=== PATIENT | female | born 1960 | race Caucasian/White ===

== ENCOUNTER 2018-07-29 16:57 | Emergency (ER) | payer OTHER, SELFPAY ==
[2018-07-29 17:07] VITALS: BP 134/85; PULSE 88; RESP 14; TEMP 36.9; O2SAT 97
--- NOTE | 2018-07-29 17:25 | DI.RAD.S_ITS ---
PROCEDURE: XR CHEST 2V INDICATIONS: chest pressure, fatigue TECHNIQUE: 2 views of the chest were acquired. COMPARISON: None. FINDINGS: Surgical changes and devices: None. Lungs and pleura: No pleural effusions or pneumothorax. Lungs are clear. Mediastinum: Mediastinal contours are normal. Heart size is normal. Bones and chest wall: No suspicious bony abnormalities. Soft tissues appear unremarkable. IMPRESSION: Negative chest plain films. Dictated by: Chilango Howell M.D. on 07/29/2018 at 16:47 Approved by: Chilango Howell M.D. on 07/29/2018 at 16:48
[2018-07-29 17:45] LABS: Add Manual Diff / Slide Review NO; Eosinophils Percent Auto 3.1 % (2-4); Hematocrit 38.5 % (36-46); Hemoglobin 12.9 g/dL (12.0-16.0); Lymphocytes Percent Auto 21.4 % (25-40); Mean Corpuscular HGB Conc 33.5 % (30-36); Mean Corpuscular Hemoglobin 30.3 PG (26-34); Mean Corpuscular Volume 90.7 fL (80-100); Monocytes Percent Auto 8.7 % (3-14); Neutrophils Absolute Auto 3400 /uL (1500-7000); Neutrophils Percent Auto 65.8 % (50-75); Platelet Count 257 X10^3/uL (150-400); Red Blood Cell Count 4.24 X10^6/uL (4.0-5.2); Red Cell Distribution Width 12.9 % (11.6-14.8); White Blood Cell Count 5.1 X10^3/uL (4.5-11.0)
[2018-07-29 17:54] LABS: Alanine Aminotransferase 91 IU/L (9-52); Albumin 4.7 g/dL (3.5-5.0); Albumin Globulin Ratio 1.4 (1.0-2.8); Alkaline Phosphatase 111 U/L (38-126); Aspartate Aminotransferase 41 IU/L (14-36); BUN Creatinine Ratio 21.4 (6-22); Bilirubin Total 0.9 mg/dL (0.2-1.3); Blood Urea Nitrogen 15 mg/dL (7-17); Calcium 9.2 mg/dL (8.4-10.2); Carbon Dioxide 28 mmol/L (22-32); Chloride 98 mmol/L (98-107); Estimated Glomerular Filt Rate > 60.0 mL/min (>60); Globulin 3.3 g/dL (1.7-4.1); Glucose 97 mg/dL (80-110); HEMOLYSIS < 15 (0-50); Potassium 3.8 mmol/L (3.4-5.1); Sodium 137 mmol/L (137-145)
[2018-07-29 18:08] LABS: Troponin I < 0.012 ng/mL (0.01-0.034)
[2018-07-29 19:03] VITALS: BP 122/81; PULSE 79; RESP 13; O2SAT 99
[2018-07-29 20:00] VITALS: BP 127/84; PULSE 89; RESP 15; O2SAT 97
--- NOTE | 2018-07-29 20:04 | ED.CHESTPAIN ---
HPI - Chest Pain General Chief Complaint: Chest Pain Stated Complaint: TIGHTNESS OF CHEST Time Seen by Provider: 07/29/18 19:45 Source: patient Mode of arrival: ambulatory Limitations: no limitations History of Present Illness HPI narrative: Patient is a 58-year-old female here for evaluation of bilateral chest tightness. Patient states that over the past week she has had sinus congestion. She states she woke up this morning with the chest congestion. She states that it has been consistent all day long. Has not changed. Does not get better worse with palpation or movement or breathing. Has been coughing somewhat. Has not tried any decongestants for any of her upper respiratory symptoms. No prior history of cardiac issues. Related Data Previous Rx's Medication Instructions Recorded azithromycin See Label Instructions .ROUTE 07/29/18 .COMPLEX #6 tab Allergies Allergy/AdvReac Type Severity Reaction Status Date / Time No Known Drug Allergies Allergy Unverified 07/29/18 16:25 Review of Systems Constitutional Denies fever(s) and Denies headache(s) ENT Ears, Nose, Mouth, and Throat: Denies headache(s) Cardiovascular Reports chest pain, Denies edema, Denies dyspnea and Denies orthopnea Respiratory Reports chest congestion, Reports cough, Denies pain on inspiration and Denies dyspnea Gastrointestinal Gastrointestinal: Denies abdominal pain Genitourinary Denies dysuria Musculoskeletal Denies myalgias and Denies arthralgias Integumentary/Breasts Denies rash Neurologic Denies headache(s) Hematologic/Lymphatic Comments: Not on anticoagulation PFSH Medical History Healthy adult (Acute) Surgical History No pertinent past surgical history (Acute) Social History Smoking Status: Never smoker Exam Initial Vital Signs Initial Vital Signs: Vital Signs Temperature 98.4 F 07/29/18 17:07 Pulse Rate 88 07/29/18 17:07 Respiratory Rate 14 07/29/18 17:07 Blood Pressure 134/85 07/29/18 17:07 Pulse Oximetry 97 07/29/18 17:07 Const General: cooperative, healthy appearing, comfortable, well developed, well groomed and No acute distress Orientation: alert, awake and oriented x3 HENMT Head: normal to inspection and normocephalic Resp Effort & Inspection: normal respiratory effort Auscultation: clear to auscultation bilaterally Cardio Rate: regular rate Rhythm: regular rhythm Pulses: radial pulses present GI Inspection: non-distended Palpation: soft and No tender Skin Lesions: no lesions Rashes: no rashes Neuro General: alert, awake and oriented x3 Extrem General: normal to inspection and capillary refill normal Psych Appearance: grossly normal and well kempt Scores HEART Score Heart Score history: Slightly Suspicious Heart Score EKG: Normal Heart Score Age: 45-64 years old Heart Score risk factors: No known risk factors Heart Score troponin: < or = to normal limit Heart Score Total: 1 Course Orders Ordered: ED Orders 07/29/18 17:10 EKG-12 Lead Stat 07/29/18 17:25 Chest [XR chest 2V] Stat 07/29/18 17:35 CBC [Complete Blood Count AUTO DIFF] Stat CMP [Comprehensive Metabolic Panel] Stat Troponin I Stat Vital Signs - 8 hr 07/29/18 17:07 07/29/18 19:03 Temperature 98.4 F Pulse Rate 88 79 Respiratory Rate 14 13 Blood Pressure 134/85 Blood Pressure [Left Arm] 122/81 Pulse Oximetry 97 99 MDM - Chest Pain Lab Data Attestation: I reviewed the patient's lab results. Result diagrams: 07/29/18 17:35 07/29/18 17:35 Lab Results 07/29/18 07/29/18 Range/Units 17:35 17:35 WBC 5.1 (4.5-11.0) X10^3/uL RBC 4.24 (4.0-5.2) X10^6/uL Hgb 12.9 (12.0-16.0) g/dL Hct 38.5 (36-46) % MCV 90.7 (80-100) fL MCH 30.3 (26-34) PG MCHC 33.5 (30-36) % RDW 12.9 (11.6-14.8) % Plt Count 257 (150-400) X10^3/uL Neut % (Auto) 65.8 (50-75) % Lymph % (Auto) 21.4 L (25-40) % [place] % (Auto) 8.7 (3-14) % Eos % (Auto) 3.1 (2-4) % Baso % (Auto) 1.0 (0-2) % Neut # (Auto) 3400 (5318-7390) /uL Sodium 137 (137-145) mmol/L Potassium 3.8 (3.4-5.1) mmol/L Chloride 98 (98-107) mmol/L Carbon Dioxide 28 (22-32) mmol/L BUN 15 (7-17) mg/dL Creatinine 0.70 (0.52-1.04) mg/dL Estimated GFR > 60.0 (>60) mL/min BUN/Creatinine Ratio 21.4 (6-22) Glucose 97 (80-110) mg/dL Calcium 9.2 (8.4-10.2) mg/dL Total Bilirubin 0.9 (0.2-1.3) mg/dL AST 41 H (14-36) IU/L ALT 91 H (9-52) IU/L Alkaline Phosphatase 111 (38-126) U/L Troponin I < 0.012 (0.01-0.034) ng/mL Total Protein 8.0 (6.3-8.2) g/dL Albumin 4.7 (3.5-5.0) g/dL Globulin 3.3 (1.7-4.1) g/dL Albumin/Globulin Ratio 1.4 (1.0-2.8) Imaging Data Chest x-ray: Radiologist's impression: PROCEDURE: XR CHEST 2V INDICATIONS: chest pressure, fatigue TECHNIQUE: 2 views of the chest were acquired. COMPARISON: None. FINDINGS: Surgical changes and devices: None. Lungs and pleura: No pleural effusions or pneumothorax. Lungs are clear. Mediastinum: Mediastinal contours are normal. Heart size is normal. Bones and chest wall: No suspicious bony abnormalities. Soft tissues appear unremarkable. IMPRESSION: Negative chest plain films. Dictated by: Chilango Howell M.D. on 07/29/2018 at 16:47 Approved by: Chilango Howell M.D. on 07/29/2018 at 16:48 ECG Data Attestation: I personally reviewed and interpreted this ECG as follows: Prior ECG tracings: available for review Interpretation: EKG dated 29 July 2018 time 1715 hr Sinus rhythm Ventricular rate 82 LVH Normal QRS Normal QTC No ST T wave changes Comparison EKG dated 29 July 2018 time 1639 hr Unchanged from today's EKG MDM Narrative Medical decision making narrative: Patient with consistent chest symptoms since she woke up this morning which was greater than 6 hr after arrival here in the emergency department. Her EKG shows no ischemic changes. Her troponin was negative. Chest x-ray is unremarkable. Patient is a heart score of 1. She does describe some chest congestion. We did discuss the use of decongestants. Informed her that she needed to make contact the primary care doctor to discuss further workup. She was given return precautions. Will hold for further workup now. She expressed understanding and agreement with plan. Discharge Plan Departure Patient Disposition: Home Clinical Impression: Atypical chest pain, Sinus congestion Discharge Date/Time: 07/29/18 20:31 Interventions: ED Discharge Assessment Last Done: 07/29/18 20:31 Instructions: DI for Atypical Chest Pain Activity Restrictions/Additional Instructions: Recommend that you take an [id number]-[id number] Claritin or Richa or Zyrtec like we discussed. I also recommend you take Flonase or Nasonex likely discussed for your symptoms. If her symptoms do not improve or worsen over the next couple days you can fill the prescription for antibiotics and take them as directed. Return to the emergency department for any new or worsening symptoms Prescriptions: New azithromycin 250 mg tablet See Label Instructions .ROUTE .COMPLEX Qty: 6 RF: 0
== END 2018-07-29 20:31 | disposition home or self-care (01) ==
PROVIDERS: Emergency Medicine; Emergency Provider Emergency Medicine
DX: R07.89 Other chest pain (principal); R09.81 Nasal congestion
CPT/HCPCS: 71046; 80053; 84484; 85025; 93005; 99282; 99285

== ENCOUNTER → 2018-08-14 08:47 | Outpatient (CLI) | payer OTHER, SELFPAY ==
--- NOTE | 2018-08-18 16:00 | PM.PFT.1 ---
Pulmonary Function Test Referral & Results Date Patient Seen: 08/14/18 Requesting provider: Cyndy Hardy Indication: R05 Results: The spirometry demonstrates an FVC of 3.39 L which is 99% of predicted. The FEV1 was measured at 2.94 L which is 111% of predicted. The FEV1/FVC ratio was 87 which is 111% of predicted. Following the administration of bronchodilator there was no appreciable change in above normal numbers. Lung volumes show an SVC of 3.26 L which is 103% of predicted. The diffusing capacity was measured at 25.00 which is 97% of predicted. The maximum voluntary ventilation was normal Interpretation: This study demonstrates normal pulmonary function
== END ==
PROVIDERS: PCP Family Medicine; Visit Provider Family Medicine
DX: R05 Cough (principal)
CPT/HCPCS: 94060; 94726; 94729

== ENCOUNTER → 2018-10-02 16:08 | Outpatient (REF) | payer OTHER, SELFPAY | LOC: LAB 16:08 | PROVIDERS: PCP Family Medicine; Visit Provider Family Medicine | DX: L03.90 Cellulitis, unspecified (principal) | CPT/HCPCS: 87070 ==

== ENCOUNTER → 2018-10-08 08:30 | Outpatient (CLI) | payer OTHER, SELFPAY ==
--- NOTE | 2018-10-08 | DI.MG.S_ITS ---
BILATERAL DIGITAL SCREENING MAMMOGRAM 3D/2D WITH CAD: 10/08/2018 CLINICAL: Routine screening. Family history of breast cancer. Comparison is made to exam dated: 05/13/2015 mammogram - [facility]. The tissue of both breasts is heterogeneously dense. This may lower the sensitivity of mammography. Current study was also evaluated with a Computer Aided Detection (CAD) system. No significant masses, calcifications, or other findings are seen in either breast. There has been no significant interval change. IMPRESSION: NEGATIVE There is no mammographic evidence of malignancy. A 1 year screening mammogram is recommended. This exam was interpreted at Station ID: [id number]. NOTE: For mammograms, a report in lay terms will be sent to the patient. Approximately 15% of breast malignancies will not be visualized mammographically. In the management of a palpable breast mass, a negative mammogram must not discourage biopsy of a clinically suspicious lesion. Electronically Signed By: Harjit morrissey/philip:10/08/2018 18:00:07 letter sent: Normal Exam ACR BI-RADS Category 1: Negative 3341F
== END ==
PROVIDERS: PCP Family Medicine; Visit Provider Family Medicine
DX: Z12.31 Encounter for screening mammogram for malignant neoplasm of breast (principal); Z80.3 Family history of malignant neoplasm of breast
CPT/HCPCS: 77063; 77067

== ENCOUNTER → 2020-04-12 13:42 | Outpatient (CLI) | payer OTHER, SELFPAY ==
--- NOTE | 2020-04-12 13:45 | DI.RAD.S_ITS ---
PROCEDURE: XR SHOULDER LT MIN 2V INDICATIONS: BILATERAL SHOULDER PAIN TECHNIQUE: 3 views of the shoulder were acquired. COMPARISON: [facility], CR, XR SHOULDER RT MIN 2V, 04/12/2020, 12:45. FINDINGS: Bones: No fractures or dislocations. No suspicious bony lesions. Visualized ribs appear intact. Mild joint narrowing with periarticular osteophyte formation. Soft tissues: No suspicious soft tissue calcifications. IMPRESSION: Mild acromioclavicular and glenohumeral joint degeneration. Dictated by: Luis Araujo [facility] Interpreted: Jorden Benoit MD on 04/12/2020 at 16:23 Approved by: Jorden Benoit M.D. on 04/12/2020 at 17:01
--- NOTE | 2020-04-12 13:45 | DI.RAD.S_ITS ---
PROCEDURE: XR SHOULDER RT MIN 2V INDICATIONS: BILATERAL SHOULDER PAIN TECHNIQUE: 2 views of the shoulder were acquired. COMPARISON: None. FINDINGS: Bones: No fractures or dislocations. No suspicious bony lesions. Visualized ribs appear intact. Mild acromioclavicular degenerative narrowing. Soft tissues: No suspicious soft tissue calcifications. IMPRESSION: Mild acromioclavicular degenerative narrowing. Dictated by: Tayler Samayoa M.D. on 04/12/2020 at 16:24 Approved by: Tayler Samayoa M.D. on 04/12/2020 at 16:24
--- NOTE | 2020-04-12 13:45 | DI.RAD.S_ITS ---
PROCEDURE: XR LUMBAR SPINE 2-3V INDICATIONS: LOW BACK PAIN TECHNIQUE: 3 views of the lumbar spine were acquired. COMPARISON: None. FINDINGS: Bones: 5 [id number] vertebrae are present. There is normal bony alignment. No vertebral body compression fractures. No suspicious bony lesions. Multilevel disc degeneration, severe at the L4-L5 and L5-S1 levels where there is moderate facet joint arthropathy. Soft tissues: Overlying bowel gas pattern is normal. No suspicious soft tissue calcifications. IMPRESSION: Multilevel spondylosis. Dictated by: Luis Araujo [facility] Interpreted: Jorden Benoit MD on 04/12/2020 at 16:50 Approved by: Jorden Benoit M.D. on 04/12/2020 at 17:02
--- NOTE | 2020-04-12 13:45 | DI.RAD.S_ITS ---
PROCEDURE: XR HIP W PEL IF DONE LT MIN 4V INDICATIONS: BILATERAL HIP PAIN TECHNIQUE: AP pelvis with lateral view(s) of the left and right hip(s). COMPARISON: None. FINDINGS: Bones: No fractures or dislocations. Pelvic ring appears intact. No suspicious bony lesions. Mild joint narrowing with periarticular osteophyte formation. Degenerative disc and facet disease involves the inferior lumbar spine. Soft tissues: The visualized bowel gas pattern is normal. No suspicious soft tissue calcifications. IMPRESSION: Mild symmetric hip joint degeneration. Dictated by: Luis Araujo [facility] Interpreted: Jorden Benoit MD on 04/12/2020 at 16:24 Approved by: Jorden Benoit M.D. on 04/12/2020 at 17:01
== END ==
PROVIDERS: PCP Family Medicine; Referring Provider Family Medicine; Visit Provider Family Medicine
DX: M54.5 Low back pain (principal); M47.816 Spondylosis without myelopathy or radiculopathy, lumbar region; M47.817 Spondylosis without myelopathy or radiculopathy, lumbosacral region; M25.552 Pain in left hip; M25.551 Pain in right hip; M16.0 Bilateral primary osteoarthritis of hip; M25.512 Pain in left shoulder; M25.511 Pain in right shoulder; M19.012 Primary osteoarthritis, left shoulder
CPT/HCPCS: 72100; 73030; 73522

== ENCOUNTER → 2021-11-03 14:29 | Outpatient (CLI) | payer OTHER, SELFPAY ==
--- NOTE | 2021-11-03 | DI.MG.S_ITS ---
BILATERAL DIGITAL SCREENING MAMMOGRAM 3D/2D WITH CAD: 11/03/2021 CLINICAL: Routine screening. Family history of breast cancer. Comparison is made to exams dated: 10/08/2018 mammogram - [facility] and 05/13/2015 mammogram - [facility]. The tissue of both breasts is heterogeneously dense. This may lower the sensitivity of mammography. Current study was also evaluated with a Computer Aided Detection (CAD) system. There are benign calcifications in the left breast. No significant masses, calcifications, or other findings are seen in either breast. There has been no significant interval change. IMPRESSION: BENIGN There is no mammographic evidence of malignancy. A 1 year screening mammogram is recommended. This exam was interpreted at Station ID: [id number]. NOTE: For mammograms, a report in lay terms will be sent to the patient. Approximately 15% of breast malignancies will not be visualized mammographically. In the management of a palpable breast mass, a negative mammogram must not discourage biopsy of a clinically suspicious lesion. Electronically Signed By: Dipak Mckee acr/philip:11/03/2021 14:54:02 letter sent: Normal Exam ACR BI-RADS Category 2: Benign Finding(s) 3342F
== END ==
PROVIDERS: Family Provider Family Medicine; PCP Family Medicine; Referring Provider Family Medicine; Visit Provider Family Medicine
DX: Z12.31 Encounter for screening mammogram for malignant neoplasm of breast (principal); Z80.3 Family history of malignant neoplasm of breast
CPT/HCPCS: 77063; 77067

== ENCOUNTER → 2022-11-05 09:04 | Outpatient (CLI) | payer OTHER, SELFPAY ==
--- NOTE | 2022-11-05 | DI.MG.S_ITS ---
BILATERAL DIGITAL SCREENING MAMMOGRAM 3D/2D WITH CAD: 11/05/2022 CLINICAL: Routine screening. Family history of breast cancer. Comparison is made to exams dated: 11/03/2021 mammogram, 10/08/2018 mammogram - [facility], and 05/13/2015 mammogram - [facility]. Both breasts are heterogeneously dense, which may obscure small masses (category c / 51-75% glandular tissue). Current study was also evaluated with a Computer Aided Detection (CAD) system. There are benign calcifications in the left breast. No significant masses, calcifications, or other findings are seen in either breast. There has been no significant interval change. IMPRESSION: BENIGN There is no mammographic evidence of malignancy. A 1 year screening mammogram is recommended. Based on the Tyrer Cuzick model (a risk assessment model) the patient's lifetime risk is 18.8% and her 10 year risk is 9.0%. According to the ACR, ACS, and NCCN guidelines, an annual breast MRI exam along with mammogram is recommended if the patient's lifetime risk is 20% or greater. This exam was interpreted at Station ID: [id number]. NOTE: For mammograms, a report in lay terms will be sent to the patient. Approximately 15% of breast malignancies will not be visualized mammographically. In the management of a palpable breast mass, a negative mammogram must not discourage biopsy of a clinically suspicious lesion. Electronically Signed By: Bhaskar zamarripa/philip:11/05/2022 10:06:11 letter sent: Normal Exam ACR BI-RADS Category 2: Benign Finding(s) 3342F
== END ==
PROVIDERS: Family Provider Family Medicine; PCP Family Medicine; Referring Provider Family Medicine; Visit Provider Family Medicine
DX: Z12.31 Encounter for screening mammogram for malignant neoplasm of breast (principal); Z80.3 Family history of malignant neoplasm of breast
CPT/HCPCS: 77063; 77067

== ENCOUNTER → 2022-11-14 14:48 | Outpatient (CLI) | payer OTHER, SELFPAY ==
--- NOTE | 2022-11-14 15:00 | DI.DEXA.S_ITS ---
Bone Density Report Name: KVNG SALAS Age: 62 Sex: Female Ethnicity: White Date of : 1960 Indication: postmenopausal; screening for osteoporosis; Referring Provider: LARA BOCANEGRA Study: Bone densitometry was performed. Exam Date: November 14, 2022 Accession number: [id number] Bone Density: Region BMD T-score Z-score Classification AP Spine(L1, L3, L4) 0.874 -1.6 0.1 Osteopenia Femoral Neck (Left) 0.747 -0.9 0.6 Normal Total Hip (Left) 0.947 0.0 1.3 Normal Femoral Neck (Right) 0.858 0.1 1.6 Normal Total Hip (Right) 0.957 0.1 1.3 Normal Total Hip Mean 0.952 0.1 1.3 Normal World Health Organization criteria for BMD impression classify patients as: Normal (T-score at or above -1.0), Osteopenia (T-score between -1.0 and -2.5), or Osteoporosis (T-score at or below -2.5). 10-year Fracture Risk(1): Major Osteoporotic Fracture 7.6% Hip Fracture 0.5% Reported Risk Factors: [place] (), Neck BMD=0.747, BMI=28.7 (1) FRAX(R) Version 3.08. Fracture probability calculated for an untreated patient. Fracture probability may be lower if the patient has received treatment. Impression: The patient has low bone mass, based on the Total Spine T-score. The patient has an estimated ten-year risk of hip fracture of 0.5% and an estimated ten-year risk of major fracture of 7.6%, based on the WHO FRAX algorithm. Discussion: BONE DENSITY IS LOW AT ONE OR MORE SKELETAL SITES. This patient's lowest T-score is low at one or more skeletal sites. It meets the World Health Organization's (WHO) criteria for ?low bone mass? (T-score between -1.0 and -2.5). The patient's 10-year risk of fracture as calculated by FRAX is less than the threshold where pharmacological therapy is recommended by the National Osteoporosis Foundation (NOF). However, all treatment decisions require clinical judgment and consideration of individual patient factors, including patient preferences, comorbidities, previous drug use, risk factors not captured in the FRAX model (e.g., frailty, falls, vitamin D deficiency, increased bone turnover, interval significant decline in bone density) and possible under or overestimation of fracture risk by FRAX. The patient should follow a healthful lifestyle (good nutrition with adequate calcium and vitamin D, and appropriate weight-bearing exercise). Follow-Up: Consider repeating this study in 2 to 3 years to reassess this patient's status, or sooner if there is some new clinical indication. Reported by: DIONNE BETTS M.D. on 11/14/2022 3:09:00 PM.
== END ==
PROVIDERS: Family Provider Family Medicine; PCP Family Medicine; Referring Provider Family Medicine; Visit Provider Family Medicine
DX: Z13.820 Encounter for screening for osteoporosis (principal); Z78.0 Asymptomatic menopausal state; M85.88 Other specified disorders of bone density and structure, other site
CPT/HCPCS: 77080

== ENCOUNTER → 2023-06-07 08:18 | Outpatient (CLI) | payer MEDICARE, SELFPAY | PROVIDERS: Family Provider Family Medicine; PCP Family Medicine; Visit Provider Family Medicine | DX: Z87.898 Personal history of other specified conditions (principal) | CPT/HCPCS: 87077; 87086; 87186 ==

== ENCOUNTER → 2023-07-02 07:33 | Outpatient (CLI) | payer MEDICARE, SELFPAY ==
--- NOTE | 2023-07-02 07:34 | DI.US.S_ITS ---
PROCEDURE: US RENAL COMPLETE INDICATIONS: DYSURIA TECHNIQUE: Real-time scanning was performed of the kidneys and bladder, with image documentation. COMPARISON: None. FINDINGS: Kidneys: Kidneys are normal in size. Right kidney measures 11.8 cm long; left kidney measures 10.4 cm long. Right renal cortical thickness is 1.5 cm; left renal cortical thickness is 1.6 cm. Renal cortical echotexture is normal. No hydronephrosis or nephrolithiasis. No suspicious solid mass lesions. Bladder: Pre-void bladder volume is 223 mL. Post-void residual is 21 mL. Focal wall thickening on prevoid imaging measuring up to 7.0 millimeters. On pre-void images, bilateral ureteral jets are noted with color Doppler interrogation. (Of note, ureteral jets may not be detectable in up to 25% of cases due to insufficient differences in specific gravity between ureteral and bladder urine). Miscellaneous: No free pelvic fluid. IMPRESSION: 1. The kidneys are normal in appearance. 2. Focal area of bladder wall thickening on prevoid imaging measuring up to 7 millimeters. Malignancy is not excluded and cystoscopy or short-term follow-up renal ultrasound is recommended for further evaluation. Dictated by: Dante Melara M.D. on 07/02/2023 at 9:59 Approved by: Dante Melara M.D. on 07/02/2023 at 10:02
== END ==
PROVIDERS: Family Provider Family Medicine; PCP Family Medicine; Referring Provider Family Medicine; Visit Provider Family Medicine
DX: R10.2 Pelvic and perineal pain (principal)
CPT/HCPCS: 76770

== ENCOUNTER → 2024-10-23 08:25 | Outpatient (CLI) | payer MEDICARE, SELFPAY ==
[2024-10-23 11:11] LABS: Cholesterol 225 mg/dL (140-199); HDL Cholesterol 56 mg/dL (40-60); LDL Cholesterol Calculated 149 mg/dL (<100); Triglycerides 99 mg/dL (35-150)
== END ==
PROVIDERS: Family Provider Family Medicine; PCP Family Medicine; Referring Provider Family Medicine; Visit Provider Family Medicine
DX: Z13.220 Encounter for screening for lipoid disorders (principal)
CPT/HCPCS: 36415; 80061

== ENCOUNTER → 2024-10-30 11:54 | Outpatient (CLI) | payer MEDICARE, SELFPAY ==
--- NOTE | 2024-10-30 11:55 | DI.RAD.S_ITS ---
PROCEDURE: XR DEXA AXIAL SKELETON INDICATIONS: Osteoporosis screening COMPARISON: [facility], , XR DEXA AXIAL SKELETON, 11/14/2022, 15:00. FINDINGS: Lumbar Spine: Bone mineral density 0.863 g/cm2, T score -1.7, no significant change. Left Femoral Neck: Bone mineral density 0.760 g/cm2, T score -0.8. Left Hip: Bone mineral density 0.932 g/cm2, T score -0.1, no significant change. Fracture Risk Calculation (when applicable): 10-year fracture risk of a major osteoporotic fracture 7.8 percent and of a hip fracture 0.5 percent. (T score greater or equal to -1.0 to: NORMAL) (T score from -1.1 to -2.4: OSTEOPENIA) (T score less than or equal to -2.5: OSTEOPOROSIS) IMPRESSION: Low bone mineral density (osteopenia) by WHO classification. Follow-up guidelines as follows: Osteoporosis: Consider a repeat DEXA and Vertebral Fracture Assessment (VFA) exam in 2 years or sooner if medically necessary, to reassess this patient's status. Osteopenia: Consider a repeat DEXA in 2-3 years to reassess this patient's status, or if there is a new clinical indication. Normal: Consider a repeat DEXA in 5 years or sooner, or if there is a new clinical indication. All treatment decisions require clinical judgment and consideration of individual patient factors, including patient preferences, comorbidities, previous drug use, risk factors not captured in the FRAX model (e.g., frailty, falls, vitamin D deficiency, increased bone turnover, interval significant decline in bone density ) and possible under- or over-estimation of fracture risk by FRAX. In addition, the NOF Guide recommends that FDA-approved medical therapies be considered in postmenopausal women and men age >= 50 years with a: * Hip or vertebral (clinical or morphometric) fracture * T-score of <=-2.5 at the spine or hip * Ten-year fracture probability by FRAX of >= 3% for hip fracture or >=20% for major osteoporotic fracture. Dictated by: Dante Melara M.D. on 11/01/2024 at 21:42 Approved by: Dante Melara M.D. on 11/01/2024 at 21:43
== END ==
PROVIDERS: Family Provider Family Medicine; PCP Family Medicine; Referring Provider Family Medicine; Visit Provider Family Medicine
DX: Z78.0 Asymptomatic menopausal state (principal); M85.89 Other specified disorders of bone density and structure, multiple sites
CPT/HCPCS: 77080

== ENCOUNTER → 2025-01-11 08:15 | Outpatient (CLI) | payer MEDICARE, SELFPAY ==
[2025-01-11 08:47] LABS: Add Manual Diff / Slide Review NO; Basophils Absolute Auto 100 /uL (0-100); Basophils Percent Auto 1.2 % (0-2); Eosinophils Absolute Auto 200 /uL (0-450); Eosinophils Percent Auto 4.6 % (2-4); Hematocrit 39.2 % (36-46); Hemoglobin 13.2 g/dL (12.0-16.0); Lymphocytes Absolute Auto 1800 /uL (1100-4500); Lymphocytes Percent Auto 40.6 % (25-40); Mean Corpuscular HGB Conc 33.8 % (30-36); Mean Corpuscular Hemoglobin 30.5 PG (26-34); Mean Corpuscular Volume 90.4 fL (80-100); Monocytes Absolute Auto 300 /uL (0-900); Monocytes Percent Auto 7.4 % (3-14); Neutrophils Absolute Auto 2000 /uL (1500-7000); Neutrophils Percent Auto 46.2 % (50-75); Platelet Count 284 X10^3/uL (150-400); Red Blood Cell Count 4.33 X10^6/uL (4.0-5.2); Red Cell Distribution Width 13.2 % (11.6-14.8); White Blood Cell Count 4.3 X10^3/uL (4.5-11.0)
[2025-01-11 08:52] LABS: Alanine Aminotransferase 32 IU/L (<35); Albumin 4.6 g/dL (3.5-5.0); Albumin Globulin Ratio 1.6 (1.0-2.8); Alkaline Phosphatase 76 U/L (38-126); Aspartate Aminotransferase 28 IU/L (14-36); BUN Creatinine Ratio 17.9 (6-22); Bilirubin Total 0.9 mg/dL (0.2-1.3); Blood Urea Nitrogen 10 mg/dL (7-17); Calcium 9.3 mg/dL (8.4-10.2); Carbon Dioxide 26 mmol/L (22-32); Chloride 102 mmol/L (98-107); Estimated Glomerular Filt Rate > 60 mL/min (>60); Globulin 2.9 g/dL (1.7-4.1); Glucose 133 mg/dL (70-99); HEMOLYSIS < 15 (0-50); Potassium 4.5 mmol/L (3.4-5.1); Sodium 136 mmol/L (137-145); Total Protein 7.5 g/dL (6.3-8.2)
[2025-01-11 08:59] LABS: Rheumatoid Factor < 8.6 IU/mL (<12.0)
[2025-01-11 17:27] LABS: Hemoglobin A1C% w Est Avg Glu 5.8 % (4.0-6.0)
[2025-01-13 16:09] LABS: Lipoprotein (a) <8.4 nmol/L (<75.0)
[2025-01-13 18:08] LABS: Estrogen 79 pg/mL (40-244)
== END ==
PROVIDERS: PCP Family Medicine; Referring Provider Family Medicine; Visit Provider Family Medicine
DX: R21 Rash and other nonspecific skin eruption (principal); Z78.0 Asymptomatic menopausal state; Z82.49 Family history of ischemic heart disease and other diseases of the circulatory system; Z82.61 Family history of arthritis; R73.9 Hyperglycemia, unspecified
CPT/HCPCS: 36415; 80053; 82672; 83036; 83695; 84144; 84999; 85025; 86430